=== PATIENT | female | born 1950 ===

== ENCOUNTER → 2022-12-23 | Day surgery (SDC) | payer OTHER ==
[~2022-12-23] VITALS: Ht 162.6 cm; Wt 80.3 kg
[~2022-12-23] MED LIST: ADULT LOW DOSE81 M1 PO; ARICEPT PO; CARDIZEM60 MG PO; CARDURA1 MG PO; CLONAZEPAM1 MG PO; COZAR PO; ELAVIL PO; HUMULIN 70100 UNIT/2 SUBCUTANEO; HYDRODIURIL12.5 MG PO; NAMENDA5 MG PO
== END | disposition home or self-care (01) ==
LOC: ADM 12-20 07:15 → CIR.AMB 05:46
PROVIDERS: ATTEND Orthopaedic Surgery
DX: M75.121 Complete rotator cuff tear or rupture of right shoulder, not specified as traumatic (principal); Z20.822 Contact with and (suspected) exposure to COVID-19; I10 Essential (primary) hypertension; E11.9 Type 2 diabetes mellitus without complications; Z86.73 Personal history of transient ischemic attack (TIA), and cerebral infarction without residual deficits; Z79.4 Long term (current) use of insulin; M24.111 Other articular cartilage disorders, right shoulder

== ENCOUNTER 2025-09-26 07:00 | Day surgery (SDC) | payer OTHER ==
[2025-09-18 11:06] LABS: URINE APPEARANCE Clear; URINE BILIRRUBIN Negative (NEGATIVE); URINE BLOOD Trace; URINE COLOR Yellow; URINE KETONE Negative (NEGATIVE); URINE LEUKOCYTE Negative; URINE NITRATE Negative; URINE UROBILINOGEN 0.2 E.U./dl
[2025-09-18 11:07] LABS: URINE BACTERIA 137.9 uL (0.0-1933); URINE CAST 1.46 uL (0.0-1.40); URINE EPITHELIAL CELLS 32.4 uL (0.0-38.8); URINE RBC 17.7 uL (0.0-20.8); URINE WBC 17.2 uL (0.0-23.2)
[2025-09-18 11:07] LABS: BASO % 0.9 % (0.1-1.2); EOS # 0.05 (0.04-0.54); EOS % 1.1 % (0.7-7.0); LYMPH # 1.31 (1.18-3.74); LYMPH % 29.1 % (19.3-53.1); MEAN PLATELET VOLUME 11.00 fl (9.4-12.4); MONO # 0.30 (0.24-0.82); MONO % 6.7 % (4.7-12.5); NEUT # 2.79 (1.56-6.13); NEUT % 62.0 % (34.0-71.1); RED CELL DISTRIBUTION WIDTH 12.4 % (11.6-14.4)
[2025-09-18 11:11] VITALS: BP 140/74
[2025-09-18 11:34] LABS: INR 0.95
[2025-09-18 11:46] LABS: ALT/SGPT 53.0 U/L (12-78); AST/SGOT 24.0 U/L (15-37); BILIRUBIN TOTAL 0.58 mg/dL (0.3-1.2); BUN CREA RATIO 21.0 (7.0-25.0); CREATININE SERUM 0.75 mg/dL (0.55-1.02); GFR 75.75; GLOBULINA 3.8 G/DL (2.4-3.5); GLUCOSE FASTING 199.0 mg/dL (65-100); OSMOLALITY SERUM 286.0 MOSM/KG (275-295)
[2025-09-18 11:55] LABS: URINE GLUCOSE 250 MG/DL (NEGATIVE); URINE PROTEIN >=1000 (NEGATIVE)
[~2025-09-26] VITALS: Ht 162.6 cm; Wt 78.5 kg
[2025-09-26] MEDS ORDERED: KETOROLAC TROMETHAMINE 30 MG VIAL IM ONE (10:45)
[2025-09-26] MEDS ORDERED: CEFAZOLIN SODIUM 1,000 MG VIAL IV ONE (10:45)
[2025-09-26] MEDS ORDERED: BUPIVACAINE HCL 30 ML VIAL IV ONE (10:45)
[2025-09-26] MEDS ORDERED: LIDOCAINE HCL 1%/EPINEPHRINE 20ML VIAL IJ ONE (10:45)
[2025-09-26] MEDS ORDERED: KETOROLAC TROMETHAMINE 30 MG VIAL IJ ONE (10:45)
== END 2025-09-26 14:20 | disposition home or self-care (01) ==
LOC: CIR.AMB 07:00
PROVIDERS: ATTEND Orthopaedic Surgery
DX: M75.122 Complete rotator cuff tear or rupture of left shoulder, not specified as traumatic (principal); M24.112 Other articular cartilage disorders, left shoulder; M75.22 Bicipital tendinitis, left shoulder